=== PATIENT | male | born 1995 | race African-American/Black ===

== ENCOUNTER 2018-02-27 17:45 | Emergency (ER) | payer OTHER ==
[~2018-02-27] VITALS: Ht 185.4 cm; Wt 83.0 kg
[2018-02-27] MEDS ORDERED: IBUPROFEN 800800 M1 PO (18:52)
[2018-02-27 19:18] VITALS: BP 124/71
== END 2018-02-27 19:19 | disposition home or self-care (01) ==
LOC: ER 17:45
DX: S76.312A Strain of muscle, fascia and tendon of the posterior muscle group at thigh level, left thigh, initial encounter (principal); X58.XXXA Exposure to other specified factors, initial encounter; Y93.02 Activity, running; Y92.89 Other specified places as the place of occurrence of the external cause; Y99.8 Other external cause status